=== PATIENT | female | born 1980 | race American Indian/Alaskan Native ===

== ENCOUNTER 2020-05-28 08:09 | Outpatient (CLI) | payer OTHER ==
--- NOTE | 2020-05-28 10:42 | Ultrasound Report ---
ULTRASOUND-GUIDED CORE NEEDLE BIOPSY Right BREAST WITH CLIP PLACEMENT INDICATION: Right breast lesion at the 7:00 position. FINDINGS: Informed consent was obtained. The lesion within the right breast at the 7:00 position, 1-2 cm from t he nipple, was identified with ultrasound. The overlying skin was cleansed with Betadine and local an esthesia was obtained with a 1% lidocaine solution. Under ultrasound guidance a 14-gauge spring loade d core biopsy needle was advanced to the lesion. A total of 5 core samples were obtained. A U-shaped biopsy marker was placed to kaylah the site of the biopsy. Specimen samples were placed in formalin and sent to pathology for analysis. Patient tolerated the procedure well and no immediate complications were identified. IMPRESSION: Technically successful ultrasound guided biopsy of right breast lesion at the 7:00 position with plac ement of a U-shaped biopsy marker. An addendum with the pathology results will be added to this report at a later date. Signer Name: Dakota Romero MD Signed: 05/28/2020 10:38 AM Workstation Name: [id number]
--- NOTE | 2020-05-28 10:44 | Mammography Report ---
RIGHT DIAGNOSTIC MAMMOGRAM INDICATION: Status post right breast biopsy COMPARISON: Ultrasound performed earlier the same day. FINDINGS: Right breast mammographic images (CC and ML) were performed following ultrasound guided bio psy to assess location of the biopsy marker. There is a U-shaped biopsy marker within the anterior ri ght breast at about the 7:00 position. This would be in the expected location of the sonographic find ing previously identified. IMPRESSION: Mammographic images documenting accurate location of U shaped biopsy marker at site of recent right b reast 7:00 ultrasound-guided biopsy. BI-RADS Category 4: Suspicious for Malignancy. Signer Name: Dakota Romero MD Signed: 05/28/2020 10:40 AM Workstation Name: [id number]
== END 2020-05-28 08:10 | disposition home or self-care (01) ==
LOC: SPVWC 08:09
PROVIDERS: ATTEND Surgery
DX: N63.13 Unspecified lump in the right breast, lower outer quadrant (principal); N64.89 Other specified disorders of breast; R92.8 Other abnormal and inconclusive findings on diagnostic imaging of breast
CPT/HCPCS: 88305

== ENCOUNTER 2020-07-25 09:50 | Outpatient (CLI) | payer OTHER ==
--- NOTE | 2020-07-26 16:26 | Magnetic Resonance Report ---
Bilateral breast MR without and with contrast. History: Screening mammogram, patient at high risk for breast malignancy. Personal history of right b reast 7:00 benign biopsy. Comparison: 05/28/2020. Technique: Multiplanar multisequence MR images of the breast were obtained before and after the intra venous administration of intravenous contrast. Post processing analysis and review was performed on a separate computer workstation. Findings: Breast composition is scattered fibroglandular. There is mild background parenchymal enhancement with in both breasts. No enhancing mass, dominant focus, or abnormal enhancement is identified within either breast. A biop sy marker in the inferior subareolar right breast is noted with surrounding vague low level enhanceme nt (most consistent with recent postbiopsy changes). This corresponds with the site of recent benign biopsy. Mildly prominent axillary lymph nodes bilaterally appear symmetric. No pathologically enlarged axilla ry or internal mammary lymph nodes. Impression: No evidence of breast malignancy. Patient is reported to have underwent screening mammogram in 2019 at an outside location. If this is the case, a routine screening mammogram due in November 24 would be recommended, unless imaging is clinically indicated sooner. BIRADS 2: Benign A normal MRI does not exclude the presence of some forms of breast malignancy as literature reports s uggest that some forms of ductal carcinoma in situ or lobular carcinoma, particularly, may not be det ected on MRI. The sensitivity and specificity of MRI for cancers under 5 mm may be reduced. MRI does not replace the recommendation for annual conventional mammographic evaluation and should be used as an adjunct to mammography and physical examination as necessary. . Signer Name: Dakota Romero MD Signed: 07/25/2020 11:28 AM Workstation Name: [id number]
== END 2020-07-25 09:51 | disposition home or self-care (01) ==
LOC: SPVIMAG 09:50
PROVIDERS: ATTEND Surgery
DX: R92.8 Other abnormal and inconclusive findings on diagnostic imaging of breast (principal)
CPT/HCPCS: A9577; C8908; 77049